=== PATIENT | female | born 1980 | race American Indian/Alaskan Native ===

== ENCOUNTER 2016-11-28 20:01 | Emergency (ER) | payer OTHER ==
[2016-11-29 01:38] VITALS: BP 144/91
[2016-11-29] MEDS ORDERED: FLEXERIL PO ONE (01:59)
[2016-11-29] MEDS ORDERED: TORADOL IM ONE (01:59)
[2016-11-29] MEDS ORDERED: NORCO 5/325 PO ONE (01:59)
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
== END 2016-11-29 05:18 | disposition home or self-care (01) ==
LOC: ED 20:01
DX: S16.1XXA Strain of muscle, fascia and tendon at neck level, initial encounter (principal); S29.012A Strain of muscle and tendon of back wall of thorax, initial encounter; M25.519 Pain in unspecified shoulder; V89.2XXA Person injured in unspecified motor-vehicle accident, traffic, initial encounter; Y93.89 Activity, other specified; Y99.8 Other external cause status; Y92.89 Other specified places as the place of occurrence of the external cause; Z98.890 Other specified postprocedural states
CPT/HCPCS: 72125; 72128; 81025; 96372; 99284; J1885

== ENCOUNTER 2017-03-30 18:11 | Emergency (ER) | payer SELFPAY ==
[2017-03-30 19:55] LABS: Basophils % (Auto) 0.5 % (0.0-1.8); Eosinophils % (Auto) 1.1 % (0.0-4.3); Hematocrit 35.9 % (30.3-42.9); Hemoglobin 11.7 gm/dl (10.1-14.3); Mean Corpuscular HGB Conc 33 % (30-34); Mean Corpuscular Hemoglobin 29 pg (28-32); Mean Corpuscular Volume 89 fl (79-97); Platelet Count 277 K/mm3 (140-440); Red Blood Count 4.03 M/mm3 (3.65-5.03); Red Cell Distribution Width 13.2 % (13.2-15.2); White Blood Count 13.4 K/mm3 (4.5-11.0)
[2017-03-30 19:56] LABS: Anion Gap 19 mmol/L; BUN/Creatinine Ratio 26.66; Blood Urea Nitrogen 16 mg/dL (7-17); Carbon Dioxide 22 mmol/L (22-30); Chloride 100.5 mmol/L (98-107); Glucose 115 mg/dL (65-100); Potassium 3.5 mmol/L (3.6-5.0); Sodium 138 mmol/L (137-145)
--- NOTE | 2017-03-30 21:19 | Cat Scan Report ---
FINAL REPORT EXAM: CT NECK WO CON HISTORY: NECK SWELLING TECHNIQUE: CT images are acquired through the neck without contrast. Transaxial , coronal and sagittal reformations are provided. PRIORS: 11/29/2016 FINDINGS: Symmetric appearance of the parapharyngeal fat is within normal limits. The parotid and carotid spaces are unremarkable for noncontrast technique. No soft tissue mass or lymphadenopathy. The airway is patent. Imaged lung apices are unremarkable normal spherical shape of the globes. No retro bulbar fat abnormality. Imaged portion of the brain is grossly unremarkable. The cervical spine is intact. No fracture or gross malalignment. Mild mucosal thickening in the left maxillary sinus without fluid level. The mastoid air cells are clear. IMPRESSION: Normal symmetric noncontrast appearance of the suprahyoid mucosal spaces of the neck. No lymphadenopathy or soft tissue mass. The airway is patent.
[2017-03-31] MEDS ORDERED: TYLENOL PO ONE (01:31)
[2017-03-31] MEDS ORDERED: TYLENOL ONE (01:31)
[2017-03-31] MEDS ORDERED: ZOFRAN IM ONE (03:03)
[2017-03-31] MEDS ORDERED: SUBLIMAZE IM ONE (03:03)
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
[2017-03-31 03:57] VITALS: BP 114/78
== END 2017-03-31 03:58 | disposition home or self-care (01) ==
LOC: ED 18:11
DX: M54.2 Cervicalgia (principal); G89.18 Other acute postprocedural pain
CPT/HCPCS: 36415; 70490; 80048; 84703; 85025; 96372; 99284; J2405; J3010